=== PATIENT | female | born 1995 | race Caucasian/White ===

== ENCOUNTER → 2020-09-08 | Outpatient (CLI) | payer OTHER ==
[~2020-09-08] MED LIST: CELEBREX200 MG PO; DECADRON6 MG PO; DOXYCYCLINE HY100 MG PO; HYDROCODON-ACE1 EAC4 PO; ZOFRAN ODT 4 MG4 MG PO
[2020-09-08 07:26] LABS: HEMOGLOBIN 13.9 gm/dl (12.3-15.3); RED BLOOD COUNT 4.81 M/UL (4.00-5.10)
[2020-09-08 08:30] LABS: BUN/CREATININE RATIO 18 (0-10)
[2020-09-09 07:11] LABS: THYROXINE (T4) 5.9 ug/dL (4.5-12.0); VITAMIN D, 25-HYDROXY 10.5 ng/mL (30.0-100.0)
== END ==
LOC: LAB 06:17
PROVIDERS: Nurse Practitioner Family
DX: G40.909 Epilepsy, unspecified, not intractable, without status epilepticus (principal); E78.5 Hyperlipidemia, unspecified; G43.909 Migraine, unspecified, not intractable, without status migrainosus; R53.83 Other fatigue; E55.9 Vitamin D deficiency, unspecified
CPT/HCPCS: 36415; 80053; 80061; 84436; 84443; 84480; 85025

== ENCOUNTER 2020-09-16 17:38 | Emergency (ER) | payer OTHER ==
[~2020-09-16 17:38] MED LIST changes: -DECADRON6 MG PO; -DOXYCYCLINE HY100 MG PO; -ZOFRAN ODT 4 MG4 MG PO
[2020-09-16 19:08] LABS: HEMOGLOBIN 14.9 gm/dl (12.3-15.3); RED BLOOD COUNT 5.05 M/UL (4.00-5.10); WHITE BLOOD COUNT 4.5 K/UL (4.5-11.0)
[2020-09-16 19:25] LABS: BUN/CREATININE RATIO 15 (0-10)
[2020-09-16] MEDS ORDERED: DOXYCYCLINE HY100 MG PO (21:43)
[2020-09-16] MEDS ORDERED: DECADRON6 MG PO (21:45)
== END 2020-09-16 21:15 | disposition home or self-care (01) ==
LOC: ER1 17:38
PROVIDERS: Physician Assistant
DX: U07.1 COVID-19 (principal); J45.909 Unspecified asthma, uncomplicated; Z87.442 Personal history of urinary calculi; Z86.69 Personal history of other diseases of the nervous system and sense organs
CPT/HCPCS: 71045; 80053; 81001; 84703; 85025; 87081; 87086; 87880; 99284; U0002

== ENCOUNTER → 2021-01-10 | Outpatient (CLI) | payer OTHER ==
[~2021-01-10] MED LIST changes: +DECADRON6 MG PO; +DOXYCYCLINE HY100 MG PO; +ZOFRAN ODT 4 MG4 MG PO
[2021-01-10 11:03] LABS: HEMOGLOBIN 14.4 gm/dl (12.3-15.3); RED BLOOD COUNT 4.76 M/UL (4.00-5.10); WHITE BLOOD COUNT 12.4 K/UL (4.5-11.0)
[2021-01-10 11:19] LABS: BUN/CREATININE RATIO 20 (0-10)
[2021-01-11 09:14] LABS: THYROXINE (T4) 7.1 ug/dL (4.5-12.0); VITAMIN D, 25-HYDROXY 17.8 ng/mL (30.0-100.0)
== END ==
LOC: LAB 10:05
PROVIDERS: Nurse Practitioner Family
DX: G40.909 Epilepsy, unspecified, not intractable, without status epilepticus (principal); R31.9 Hematuria, unspecified; R53.83 Other fatigue
CPT/HCPCS: 36415; 80053; 80061; 80183; 84436; 84443; 84480; 85025; 87086

== ENCOUNTER 2021-02-16 02:38 | Emergency (ER) | payer OTHER ==
[~2021-02-16 02:38] MED LIST changes: -ZOFRAN ODT 4 MG4 MG PO
[2021-02-16 03:50] LABS: HEMOGLOBIN 14.7 gm/dl (12.3-15.3); RED BLOOD COUNT 4.87 M/UL (4.00-5.10); WHITE BLOOD COUNT 6.3 K/UL (4.5-11.0)
[2021-02-16 04:07] LABS: BUN/CREATININE RATIO 16 (0-10)
== END 2021-02-16 05:00 | disposition home or self-care (01) ==
LOC: ER1 02:38
PROVIDERS: Physician Assistant
DX: R51.9 Headache, unspecified (principal); J45.909 Unspecified asthma, uncomplicated; G40.909 Epilepsy, unspecified, not intractable, without status epilepticus; Z79.899 Other long term (current) drug therapy
CPT/HCPCS: 80048; 81001; 85025; 96374; 96375; 99284; J1885; J2765; J7030

== ENCOUNTER → 2021-03-18 | Outpatient (CLI) | payer OTHER ==
[~2021-03-18] MED LIST changes: +ZOFRAN ODT 4 MG4 MG PO
[2021-03-18 13:20] LABS: HEMOGLOBIN 15.2 gm/dl (12.3-15.3); RED BLOOD COUNT 5.02 M/UL (4.00-5.10); WHITE BLOOD COUNT 7.9 K/UL (4.5-11.0)
[2021-03-18 13:39] LABS: BUN/CREATININE RATIO 15 (0-10)
[2021-03-20 10:08] LABS: VITAMIN D, 25-HYDROXY 39.6 ng/mL (30.0-100.0)
== END ==
LOC: LAB 12:45
PROVIDERS: Nurse Practitioner Family
DX: E55.9 Vitamin D deficiency, unspecified (principal); E03.9 Hypothyroidism, unspecified; R53.82 Chronic fatigue, unspecified; R80.9 Proteinuria, unspecified; R31.9 Hematuria, unspecified; E78.5 Hyperlipidemia, unspecified
CPT/HCPCS: 36415; 80053; 80061; 81001; 83036; 84436; 84443; 84480; 85025

== ENCOUNTER 2021-03-21 06:19 | Emergency (ER) | payer OTHER ==
[~2021-03-21 06:19] MED LIST changes: -ZOFRAN ODT 4 MG4 MG PO
[2021-03-21 07:59] LABS: HEMOGLOBIN 15.9 gm/dl (12.3-15.3)
[2021-03-21 08:01] LABS: RED BLOOD COUNT 5.55 M/UL (4.00-5.10); WHITE BLOOD COUNT 10.3 K/UL (4.5-11.0)
[2021-03-21 08:11] LABS: BUN/CREATININE RATIO 20 (0-10)
[2021-03-21] MEDS ORDERED: ZOFRAN ODT 4 MG4 MG PO (08:29)
== END 2021-03-21 08:44 | disposition home or self-care (01) ==
LOC: ER1 06:19
DX: K52.9 Noninfective gastroenteritis and colitis, unspecified (principal)
CPT/HCPCS: 80053; 81001; 83690; 84703; 85025; 87086; 96374; 96375; 99284; J1953; J2405

== ENCOUNTER 2021-05-16 20:59 | Emergency (ER) | payer OTHER ==
[~2021-05-16 20:59] MED LIST changes: +ZOFRAN ODT 4 MG4 MG PO
== END 2021-05-16 21:11 | disposition left against medical advice (07) ==
LOC: ER1 20:59
DX: Z53.21 Procedure and treatment not carried out due to patient leaving prior to being seen by health care provider (principal)

== ENCOUNTER → 2021-08-08 | Outpatient (CLI) | payer BC ==
[2021-08-09 08:13] LABS: THYROXINE (T4) 6.2 ug/dL (4.5-12.0)
== END ==
LOC: LAB 08:28
PROVIDERS: Nurse Practitioner Family
DX: E03.9 Hypothyroidism, unspecified (principal)
CPT/HCPCS: 36415; 84436; 84443; 84480

== ENCOUNTER 2021-10-01 20:08 | Emergency (ER) | payer BC ==
[2021-10-01 22:03] LABS: HEMOGLOBIN 14.6 gm/dl (12.3-15.3); RED BLOOD COUNT 4.9 M/UL (4.00-5.10); WHITE BLOOD COUNT 9.6 K/UL (4.5-11.0)
[2021-10-01 22:22] LABS: BUN/CREATININE RATIO 15 (0-10)
[2021-10-02] MEDS ORDERED: COLACE 100MG C100 MG PO (01:46)
[2021-10-02] MEDS ORDERED: ZOFRAN ODT 4 MG4 MG SL (01:46)
[2021-10-02] MEDS ORDERED: BENTYL 10MG CAP10 MG PO (01:46)
== END 2021-10-02 01:57 | disposition home or self-care (01) ==
LOC: ER1 20:08
PROVIDERS: Physician Assistant
DX: K59.00 Constipation, unspecified (principal)
CPT/HCPCS: 80053; 81001; 82270; 85025; 87086; 99283; Q9967

== ENCOUNTER → 2021-10-29 | Outpatient (CLI) | payer BC ==
[~2021-10-29] MED LIST changes: +BENTYL 10MG CAP10 MG PO; +COLACE 100MG C100 MG PO; +ZOFRAN ODT 4 MG4 MG SL
[2021-10-29 09:30] LABS: HEMOGLOBIN 14.9 gm/dl (12.3-15.3); RED BLOOD COUNT 4.95 M/UL (4.00-5.10); WHITE BLOOD COUNT 8.8 K/UL (4.5-11.0)
[2021-10-29 09:51] LABS: BUN/CREATININE RATIO 17 (0-10)
[2021-10-30 08:11] LABS: VITAMIN D, 25-HYDROXY 15.3 ng/mL (30.0-100.0)
[2021-10-30 12:11] LABS: THYROXINE (T4) 7.1 ug/dL (4.5-12.0)
== END ==
LOC: LAB 09:01
PROVIDERS: Nurse Practitioner Family
DX: E03.9 Hypothyroidism, unspecified (principal); F33.1 Major depressive disorder, recurrent, moderate; E78.5 Hyperlipidemia, unspecified; F41.9 Anxiety disorder, unspecified; E55.9 Vitamin D deficiency, unspecified
CPT/HCPCS: 36415; 80053; 80061; 83036; 84436; 84443; 84480; 85025

== ENCOUNTER 2021-11-22 22:08 | Emergency (ER) | payer SELFPAY ==
[2021-11-23 01:06] LABS: HEMOGLOBIN 15.2 gm/dl (12.3-15.3); RED BLOOD COUNT 4.96 M/UL (4.00-5.10)
[2021-11-23 01:23] LABS: BUN/CREATININE RATIO 14 (0-10)
[2021-11-23] MEDS ORDERED: OMNICEF 300 MG300 MG PO (03:55)
== END 2021-11-23 04:05 | disposition home or self-care (01) ==
LOC: ER1 22:08
PROVIDERS: Student in an Organized Health Care Education/Training Program
DX: G40.409 Other generalized epilepsy and epileptic syndromes, not intractable, without status epilepticus (principal); N39.0 Urinary tract infection, site not specified
CPT/HCPCS: 70450; 80048; 81001; 84703; 85025; 96372; 99284; J0696

== ENCOUNTER → 2022-02-21 | Outpatient (CLI) | payer BC ==
[~2022-02-21] MED LIST changes: +OMNICEF 300 MG300 MG PO
[2022-02-22 09:14] LABS: THYROXINE (T4) 5.2 ug/dL (4.5-12.0)
== END ==
LOC: LAB 11:16
PROVIDERS: Nurse Practitioner Family
DX: E03.9 Hypothyroidism, unspecified (principal)
CPT/HCPCS: 36415; 84436; 84443; 84480

== ENCOUNTER 2022-05-24 06:52 | Emergency (ER) | payer BC ==
[2022-05-24 07:45] LABS: HEMOGLOBIN 14.4 gm/dl (12.3-15.3); RED BLOOD COUNT 4.83 M/UL (4.00-5.10); WHITE BLOOD COUNT 4.8 K/UL (4.5-11.0)
[2022-05-24 08:09] LABS: BUN/CREATININE RATIO 23 (0-10)
== END 2022-05-24 09:50 | disposition home or self-care (01) ==
LOC: ER1 06:52
PROVIDERS: Physician Assistant
DX: R07.89 Other chest pain (principal); G40.909 Epilepsy, unspecified, not intractable, without status epilepticus
CPT/HCPCS: 71045; 80053; 82550; 82553; 84484; 85025; 93005; 99285